=== PATIENT | male | born 1975 | race Caucasian/White ===

== ENCOUNTER → 2016-11-22 | Outpatient (CLI) | payer OTHER ==
--- NOTE | 2016-11-22 16:29 | XR ---
EXAMINATION TYPE: XR ankle complete RT, XR foot complete RT, 6 VIEWS DATE OF EXAM ORDERED: 11/22/2016 HISTORY: S93.401A, S93.601A Sprain, right foot/ankle. COMPARISON: None. FINDINGS: Osseous structures about the ankle are normal. No fracture, dislocation or ankle joint eff usion is seen. There is minimal degenerative change within the right first MTP joint. No fracture, dislocation or ot her acute osseous lesion is seen. IMPRESSION: 1. NO ACUTE OSSEOUS LESION. 2. MILD DEGENERATIVE CHANGE, RIGHT FIRST MTP JOINT.
== END | disposition home or self-care (01) ==
LOC: RADXRMAIN 15:55
PROVIDERS: ATTEND Emergency Medicine
DX: S93.601A Unspecified sprain of right foot, initial encounter (principal); S93.401A Sprain of unspecified ligament of right ankle, initial encounter; M25.871 Other specified joint disorders, right ankle and foot

== ENCOUNTER → 2016-12-01 | Outpatient (CLI) | payer OTHER ==
--- NOTE | 2016-12-01 09:41 | XR ---
EXAMINATION TYPE: XR ankle complete RT DATE OF EXAM: 12/01/2016 COMPARISON: 11/22/2016 HISTORY: Pain FINDINGS: Three views of the ankle demonstrate the ankle mortise to be intact and symmetric. Hypertrophic spur involving the medial malleolus. Soft tissue edema. Tiny well-corticated density adjacent lateral mall eolus is chronic. IMPRESSION: 1. No definite acute fracture or dislocation, if symptoms persist follow-up study in 7 to 10 days wou ld be suggested.
--- NOTE | 2016-12-01 09:43 | XR ---
EXAMINATION TYPE: XR foot complete RT DATE OF EXAM: 12/01/2016 COMPARISON: 11/22/2016 HISTORY: Pain TECHNIQUE: Three views are submitted. FINDINGS: The osseous structures are intact and the joint spaces are preserved. There is no acute fracture or dislocation. There is diffuse soft tissue edema posterior to the distal tibia. Severe arthropathy fi rst MTP joint. IMPRESSION: 1. No acute fracture or dislocation. If symptoms persist, follow-up exam in 7 to 10 days could be ob tained. Soft tissue edema to the distal margin of the tibia recommend MRI. 2. Severe arthropathy first MTP joint.
== END | disposition home or self-care (01) ==
LOC: RADXRMAIN 09:09
PROVIDERS: ATTEND Emergency Medicine
DX: M19.071 Primary osteoarthritis, right ankle and foot (principal); S93.401D Sprain of unspecified ligament of right ankle, subsequent encounter; S93.601D Unspecified sprain of right foot, subsequent encounter; X58.XXXD Exposure to other specified factors, subsequent encounter